=== PATIENT | male | born 1955 ===

== ENCOUNTER → 2022-12-02 15:04 | Outpatient (BNVA) | payer OTHER, SELFPAY | PROVIDERS: PCP Internal Medicine; Visit Provider Physician Assistant | DX: Z13.89 Encounter for screening for other disorder (principal) ==

== ENCOUNTER 2023-11-23 14:15 | Outpatient (AMB) | payer OTHER, SELFPAY ==
--- NOTE | 2023-11-23 14:28 | HO.SPINEOV ---
Intake Intake Visit Reasons: low back pain Intake Note: Mr. López is here today c/o low back pain. 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 López is about a year out from his L3-4, L4-[address] Rubin at [facility]. The patient reports that he was doing well for awhile but sometime around the fall of last year, he started to notice back pain that was keeping him from walking. He was out in the [employer] hunting and noticed he had to stop more than usual to sit down. If he sits down the symptoms will go away. It is located right over the area of the incision. Sitting or lying down his fine, but any time he is in the upright position for more than 5 or 10 minutes he has to sit down. The symptoms are progressively getting worse. He is starting to notice pain radiating out to his lateral hips as well. He does not report any focal weakness. There is no pain radiating down to the feet. He has been taking xode-lot-ewaddmp medications like Motrin and Tylenol and has even taken oxycodone after shoveling some snow this winter. The patient has normal neurological examination, negative JOHNATHON testing with the hips. Reflexes are normal. I am going to send him for flexion-extension x-rays and a new lumbar MRI with and without gadolinium. He prefers [facility] as it is much closer to his home. I will see him back after the MRI is completed. Total amount of time spent in this visit was 20 minutes in discussion of symptoms, ordering imaging and subsequent plan of care Garcia Rubin MD,PhD [facility] Orders: Orders MR lumbar spine wo/w con Today M48.061 - Spinal stenosis, lumbar region without neurogenic claudication XR lumbar spine 4V min Today M48.061 - Spinal stenosis, lumbar region without neurogenic claudication Coding Level of Care Code Est Pt Level 3 (02992) Diagnoses Lumbar stenosis M48.061
== END 2023-11-23 15:38 | disposition home or self-care (01) ==
PROVIDERS: PCP Internal Medicine; Visit Provider Physician Assistant
DX: M48.061 Spinal stenosis, lumbar region without neurogenic claudication (principal)
CPT/HCPCS: 99213

== ENCOUNTER 2023-11-23 14:15 | Outpatient (REF) | payer OTHER, SELFPAY ==
--- NOTE | ~2023-11-23 | XR_ITS ---
EXAMINATION: XR LUMBOSACRAL SPINE WITH OBLIQUES CLINICAL INFORMATION: Spinal stenosis lumbar region without neurogenic claudication. COMPARISON: None available. TECHNIQUE: 4 views of the lumbar spine including AP, lateral neutral, flexion and extension views. FINDINGS: Degenerative changes in the imaged lower thoracic spine. Levoscoliosis of the lumbar spine. Advanced facet arthritis in the xnf-cr-vwlye lumbar spine. Atherosclerotic aortoiliac calcifications. Advanced multilevel lumbar spondylosis with loss of disc space height at L1-L2, L2-L3, L3-L4, L4-L5, and most severe at L5-S1. Mild grade 1 retrolisthesis of L1 on L2, L2 on L3, and L3 on L4. Mild grade 1 anterolisthesis of L4 on L5. Grade 1 anterolisthesis of L5 on S1. XR/XR lumbar spine 4V min IMPRESSION: Advanced multilevel lumbar spondylosis most severe at L5-S1.
== END 2023-11-23 14:16 | disposition home or self-care (01) ==
LOC: HO.HOSX 14:15
PROVIDERS: PCP Internal Medicine; Visit Provider Physician Assistant
DX: M48.061 Spinal stenosis, lumbar region without neurogenic claudication (principal)
CPT/HCPCS: 72110

== ENCOUNTER 2023-12-25 11:24 | Outpatient (AMB) | payer OTHER, SELFPAY ==
--- NOTE | 2023-12-25 11:29 | HO.SPINEOV ---
Intake Visit Reasons: MRI follow up Intake Note: Mr. López is here today to F/u on MRI results. Ed Physicians Required: No Allergies No Known Allergies Allergy (Verified 12/25/23 11:31) Assessment & Plan Assessment & Plan (1) Back pain: Code(s): M54.9 - Dorsalgia, unspecified Category: Medical Plan Mr López is here in the office today for evaluation. We did a previous L3-4, L4-5 decompression on him with good resolution of his leg pain, but he is continued to have severe back pain in the lower lumbar region that radiates to his hips. We did a follow-up MRI at [facility] showing good decompression at the previous surgical areas, moderate stenosis at L2-3. Most pertinent finding though is that he has severe disc degeneration, more less jnkw-[id number] of the whole lumbar region from L1-S1. I reviewed his imaging with him and set down discussed the fact that Dr. Rubin does not believe that doing a fusion of the whole lumbar spine will improve his back pain situation, in fact may just make it worse. At this point I think we are dealing with the pain management situation. I think it would be best to be saw someone from physiatry, I will refer him to Dr. Rider and see if he has any thoughts about how we may be able to help him. Total amount of time spent in this visit was 20 minutes in discussion of symptoms, lumbar imaging results and subsequent plan of care Garcia Rubin MD,PhD [facility] Orders: Referrals Physiatry Referral M54.9 - Dorsalgia, unspecified Coding Level of Care Code Est Pt Level 3 (53188) Diagnoses Back pain M54.9
== END 2023-12-25 11:51 | disposition home or self-care (01) ==
PROVIDERS: PCP Internal Medicine; Visit Provider Physician Assistant
DX: M54.9 Dorsalgia, unspecified (principal)
CPT/HCPCS: 99213

== ENCOUNTER → 2023-12-25 11:24 | Outpatient (BNVA) | payer OTHER, SELFPAY | PROVIDERS: PCP Internal Medicine; Visit Provider Physician Assistant ==